=== PATIENT | male | born 1980 | race Caucasian/White ===

== ENCOUNTER 2018-08-01 08:24 | Emergency (ER) | payer MEDICAID, SELFPAY ==
[2018-08-01 08:26] VITALS: BP 133/85; PULSE 89; RESP 16; TEMP 36.7; O2SAT 97; BMI 24.3
--- NOTE | 2018-08-01 08:36 | RAD_ITS ---
STUDY: X-RAY CHEST REASON FOR EXAM: Male, 37 years old. Wheezing and productive cough. TECHNIQUE: PA and lateral views of the chest. COMPARISON: None. FINDINGS: The lungs are clear and expanded. There is no demonstrated pleural abnormality. Normal size heart. Normal mediastinum and nichol. Normal visualized pulmonary arteries. Normal visualized aortic arch and descending thoracic aorta. Normal visualized thoracic spine. Normal visualized ribs, clavicles, and shoulders. There is no demonstrated abnormality of the visualized soft tissue structures of the upper abdomen. RAD/Chest PA and Lateral IMPRESSION: Normal x-ray examination of the chest. Electronically Signed: Nico Hancock, at 9:39 EDT , Service support ,
[2018-08-01] MEDS: predniSONE 20 MG Tablet 60 MG PO (08:41)
--- NOTE | 2018-08-01 08:42 | ED.DCSUM_ITS ---
History of Present Illness Chief Complaint: Cough Detail of Chief Complaint: And wheezing Informant: Patient, Significant Other Onset: Month(s) - Onset February. Context: Gradual Onset Timing: Continuous Quality: Wheezing with expiration Location: respiratory Current Severity: Moderate Maximum Severity: Moderate Worsened by: Possible infection Relieved by: Nothing Associated Symptoms: Runny nose, congestion productive cough with intermittent hemoptysis Narrative: Patient is a 37-year-old male who has history of smoking. He is presently smoking 1.5 to 2 packs/day. He started smoking at the age of 10. He denies fever, chills night sweats. He denies ocular symptoms, visual symptoms, pruritus or drainage. He denies ear pain, decreased hearing. He denies sore throat. He reports shortness of breath with activity, expiratory wheezing and intermittent productive cough. He states at times he notices blood in his sputum. He has no history of PE or DVT. He denies leg pain, swelling discoloration. He denies history of allergic rhinitis. Prior similar symptoms: No Recent Illness/Hospitalization: No - Past Medical History (1) No significant past medical history Status: Acute Past Medical History - Allergies and Home Meds Allergies/Adverse Reactions: Allergies No Known Allergies Allergy (Verified 08/01/18 08:25) Primary Care Physician: Care Physician,No Primary [Primary Care Provider] - Prior records reviewed: Yes Past Medical History: None Surgical History: no surgical history Lives: Spouse/ Significant Other Smoking Status: Current every day smoker Alcohol: Rare Drugs: None Review of Systems General: Denies: Chills, Fever, Malaise, Sweats Eyes: Denies: Visual changes - bilaterally, Blurred Vision - bilaterally ENT: Reports: - - Of nasal congestion. Denies: Bilateral ear pain, Rhinorrhea, Sore throat Cardiovascular: Denies: Chest pain, Palpitations Respiratory: Reports: Dyspnea, Cough, Sputum, Dyspnea on exertion. Denies: Orthopnea, Paroxysmal nocturnal dyspnea Gastrointestinal: Denies: Abdominal pain, Nausea, Vomiting, Diarrhea, Melena, Hematochezia Genitourinary: Denies: Dysuria, Hematuria, Frequency Musculoskeletal: Denies: Myalgias, Arthralgias, Neck pain, Back pain, Swelling, Extremity Pain, -, - Skin: Denies: Rash, Wounds Neurological: Denies: Weakness, Parasthesia, Numbness Hematologic: Denies: Easy bruising, Easy bleeding Allergy: Denies: Uticaria, Swelling of the mouth, Swelling of the tongue Physical Exam Vital Signs/Narrative: Vital Signs Temp Pulse Resp BP Pulse Ox 08/01/18 08:26 98.1 F 89 16 133/85 H 97 Inital Vital Signs reviewed: Yes General: Well nourished, Well developed, No Acute Distress Head: Normocephalic, Atraumatic Eyes: Perrl, EOMI. Negative for: Pale conjunctiva, Scleral icterus, - ENT: Moist mucous membranes, TM's clear, Nasal congestion - Nasal mucosa is ospina and slightly boggy with clear drainage noted.. Negative for: No rhinorrhea Neck: Negative for: Supple, Nontender, No lymphadenopathy, No JVD, - Cardiovascular: Regular rate, Regular rhythm, No murmurs, Normal S1, Normal S2 Respiratory: No distress, Chest nontender, Wheezing, Decreased Air Movement - Increased expiratory phase. Negative for: CTA bilaterally Abdomen: Soft, Nontender, Nondistended, Normal bowel sounds, No masses Rectal: Deferred Back: Nontender, Normal Inspection Extremities: Nontender, No edema, - - There is no asymmetry, swelling, discoloration, leg vein distention, palpable cords or tenderness along the distribution of the deep venous system. Skin: Normal color, No rash, No Trauma. Negative for: Cyanosis, Diaphoresis, Jaundice Neurological: Alert, Oriented x3, Cranial nerves II-XII grossly intact, Normal Strength, Normal Sensation Psychological: Normal affect, Normal Mood Diagnostic/Tx/Re-eval Chest X-Ray - ED: 2 View, Read by ED Physician, Normal, Heart, Lungs, Mediastinum, No Acute Disease, - - On lateral 1 of patient's thoracic vertebrae is slightly compressed. - Medical Decision Making Patient most likely has emphysema/COPD with exacerbation secondary to allergies and or upper respiratory infection. Patient's nasal exam is consistent with allergic rhinitis. Because of the abnormal auditory findings chest x-ray was obtained to evaluate for chronic changes, infiltrate and mass since he is reporting intermittent hemoptysis with history of smoking since age of 10. He received a DuoNeb as well as albuterol. He also was administered 60 mg of prednisone p.o. Chest x-ray reveals no mass. There is no infiltrate. Since patient had a cough for months suspect flare of COPD. Will place on burst of prednisone, doxycyclin e and he has been instructed to use his albuterol inhaler every 2-4 hours while awake for the next 2 to 3 days. He also was informed that it is in his best interest to quit smoking. ED Disposition - Plan for ED Patient: Disposition: Home or Assisted Living Diagnosis: Acute exacerbation of COPD with asthma, Acute exacerbation of chronic bronchitis, Hemoptysis Instructions: ED COPD Flare Prescriptions: Prednisone [Deltasone] 40 mg PO DAILY #10 tab Doxycycline 100 mg PO BID #14 cap Referrals: Care Physician,No Primary [Primary Care Provider] - Mary Kidd [NON-STAFF] - 1 Week if not improving Additional Instructions: It is in your best interest to quit smoking.
[2018-08-01] MEDS: Ipratropium/Albuterol Sulfate 3 ML AMPUL.NEB INHALATION (08:48)
[2018-08-01] MEDS: Albuterol 2.5 MG/3 ML VIAL.NEB. INHALATION (08:48)
[2018-08-01 08:49] VITALS: PULSE 79; RESP 20
[2018-08-01] MEDS: Doxycycline 100 MG CAPSULE PO (09:38)
--- NOTE | 2018-08-01 09:45 | ED.VISSUMM ---
- ER Visit Summary Date of Service: 08/01/18 Chief Complaint: [] History of Present Illness: The patient is a 37 M [] Physical Examination: [] Test Results: [] Emergency Department Course and Treatment: [] Treatment Plan: [] Disposition: [] Impression: [] This note was generated with [employer]ete dictation software. It may contain incorrect words, spelling, and punctuation that were not noted in review of the chart prior to signing ED Disposition - Plan for ED Patient: Disposition: Home or Assisted Living Diagnosis: Acute exacerbation of COPD with asthma, Acute exacerbation of chronic bronchitis, Hemoptysis Instructions: ED COPD Flare Prescriptions: Albuterol Inhaler [Ventolin Hfa] 2 puff INHALATION Q4H PRN PRN #1 inhaler PRN Reason: Wheezing Prednisone [Deltasone] 40 mg PO DAILY #10 tab Doxycycline 100 mg PO BID #14 cap Referrals: Mary Kidd [NON-STAFF] - 1 Week if not improving Care Physician,No Primary [Primary Care Provider] - Additional Instructions: It is in your best interest to quit smoking.
[2018-08-01 09:50] VITALS: BP 128/77; PULSE 77; RESP 16; O2SAT 100
== END 2018-08-01 09:51 | disposition home or self-care (01) ==
PROVIDERS: Emergency Provider Emergency Medicine
DX: J44.1 Chronic obstructive pulmonary disease with (acute) exacerbation (principal); J20.9 Acute bronchitis, unspecified; J44.0 Chronic obstructive pulmonary disease with (acute) lower respiratory infection; J45.901 Unspecified asthma with (acute) exacerbation; R04.2 Hemoptysis; F17.210 Nicotine dependence, cigarettes, uncomplicated
CPT/HCPCS: 71046; 94640; 99283; J7030; A4216

== ENCOUNTER 2018-08-14 12:52 | Emergency (ER) | payer MEDICAID, SELFPAY ==
[2018-08-14 12:53] VITALS: BP 148/99; PULSE 73; PULSE 77; RESP 16; RESP 18; TEMP 37.2; O2SAT 98; BMI 23.5
[2018-08-14 14:02] LABS: Absolute Lymphocyte Count 2.14 X10^3/ul (0.83-4.51); Absolute Neutrophil Count 5.2 X10^3/uL (2.0-7.7); Basophil# 0.03 X10^3/uL; Basophil% 0.4 % (0-1); Eosinophil# 0.24 X10^3/uL; Eosinophils% 2.9 % (0-5); Hematocrit 47.2 % (40-54); Hemoglobin 16.3 g/dl (13.0-16.5); Lymphocyte # 2.14 X10^3/ul (4.0); Lymphocyte % 25.9 % (19-41); Mean Corp Hgb Conc 34.5 g/gl (32-36); Mean Corpuscular Volume 89.7 fL (80-94); Mean Platelet Vol. 9.2 fl (6.2-12.0); Monocyte# 0.67 X10^3/uL; Monocyte% 8.1 % (0-10); Neutrophil # 5.17 X10^3/uL (2.7-7.7); Neutrophil % 62.5 % (47-70); Platelet Count 254 K/mm3 (150-450); RBC Distribution Width CV 14.1 % (11.6-14.6); Red Blood Count 5.26 M/mm3 (4.6-6.2); White Blood Count 8.3 K/mm3 (4.4-11.0)
[2018-08-14 14:03] LABS: POSITIVE COUNT NO; POSITIVE DIFFERENTIAL NO; POSITIVE MORPHOLOGY NO
--- NOTE | 2018-08-14 14:04 | ED.RN ---
TIFFANIE WITH CRISIS AWARE THAT PT NEEDS TO BE SEEN; SHE WILL CALL WHEN SOMEONE IS HEADED OVER
[2018-08-14 14:08] VITALS: RESP 16
[2018-08-14 14:09] LABS: Alcohol, Blood (Medical)-Serum < 3.0 mg/dL; Anion Gap 5 (5-15); BUN 15 mg/dL (7-18); BUN/Creat Ratio 12.7 RATIO (10-20); Calcium,Total 9.3 mg/dL (8.5-10.1); Chloride 105 mmol/L (98-107); Creatinine, Serum 1.18 mg/dL (0.70-1.30); EST Glomerular Filtration Rate 74 mL/min (>60); Est Glom Filt Rate - Afr Amer 90 mL/min (>60); Estimated Creatinine Clearance 80.91 ml/min; Glucose 103 mg/dL (74-106); Potassium 4.1 mmol/L (3.5-5.1); Sodium Level 138 mmol/L (136-145)
[2018-08-14 14:15] LABS: Amphetamine Urine VISTA NEGATIVE (<1000 ng/mL); Barbiturate Urine VISTA NEGATIVE (< 200 ng/mL); Benzodiazepine Urine VISTA NEGATIVE (< 200 ng/mL); Cocaine Urine VISTA NEGATIVE (< 300 ng/mL); Ecstacy Urine VISTA NEGATIVE (< 500 ng/mL); Methadone Urine VISTA NEGATIVE (< 300 ng/mL); PCP Urine VISTA NEGATIVE (< 25 ng/mL); THC Urine VISTA POSITIVE (< 50 ng/mL); Vista UDS pH Range 6
--- NOTE | 2018-08-14 14:54 | ED.DCSUM_ITS ---
- ER Visit Summary Date of Service: 08/14/18 Chief Complaint: Depression and suicidal History of Present Illness: The patient is a 37 M with depression and prior psychiatric illness. States that the protective services are tried to take his stepson out of her home. Patient states he has made him more more depressed. To the point today that he thinks to try to break up his family he is feeling very stressed out and is having suicidal thoughts. He has tried to commit suicide the past by cutting his forearms. He denies any attempt at this time. No overdose. He does not have a specific plan. Physical Examination: Male no acute distress vital signs are stable afebrile. At times is tearful. But he is awake and alert. No smell of alcohol. No signs of toxidrome. H EENT exam unremarkable. Neck nontender. Lungs clear to auscultation bilaterally. Heart regular rhythm no murmur. Abdomen soft nontender. Extremities moves all 4. Neurovascular intact. No acute wounds. Back nontender. Neurologically he is awake alert with no focal motor deficits. Test Results: CBC normal white count 8. Chemistries normal. Normal creatinine and gap. Tox screen negative except for positive for cannabis. Alcohol negative. Emergency Department Course and Treatment: Due to the patient's history of suicide attempt and depression and what he and I discussed I will have him evaluated by crisis for possible psychiatric admission. Treatment Plan: I did evaluate the patient spoke with me around 1550 p.m. They are comfortable as is the patient that they can safety plan with him and follow-up with him tomorrow. Disposition: Discharge to home after discussion with crisis personnel Impression: Acute on chronic depression Suicidal ideation This note was generated with [employer] dictation software. It may contain incorrect words, spelling, and punctuation that were not noted in review of the chart prior to signing ED Disposition - Plan for ED Patient: Referrals: Care Physician,No Primary [Primary Care Provider] -
--- NOTE | 2018-08-14 15:06 | CM.ED ---
Social Work Crisis to assess patient for placement, per Dr. Chery recommendation. Jose R Harman SERGING MACHINE OPERATOR, METAL FABRICATOR APPRENTICE
[2018-08-14 15:43] VITALS: BP 135/65; PULSE 67; RESP 18; O2SAT 100
--- NOTE | 2018-08-14 15:55 | ED.DEP ---
ED Disposition - Plan for ED Patient: Disposition: Home or Assisted Living Instructions: Depression Referrals: Counseling,Center [GROUP OF PHYSICIANS] - 1 Day Additional Instructions: Return for feeling worse. If you are becoming more depressed or feel like you would hurt yourself or someone else. Return to the ER. Follow-up with the counseling center tomorrow as scheduled.
[2018-08-14] MEDS: Acetaminophen 500 MG Tablet 1000 MG PO (16:06)
[2018-08-14 16:10] VITALS: RESP 16
== END 2018-08-14 16:16 | disposition home or self-care (01) ==
PROVIDERS: Emergency Provider Emergency Medicine
DX: R45.851 Suicidal ideations (principal); F32.9 Major depressive disorder, single episode, unspecified; J45.909 Unspecified asthma, uncomplicated; Z72.0 Tobacco use; Z79.51 Long term (current) use of inhaled steroids
CPT/HCPCS: 36415; 80048; 80307; 80320; 85025; 99285; G0480

== ENCOUNTER 2018-09-29 16:06 | Emergency (ER) | payer MEDICAID, SELFPAY ==
[2018-09-29 16:08] VITALS: BP 135/92; PULSE 113; RESP 15; TEMP 36.6; O2SAT 98; BMI 27.3
--- NOTE | 2018-09-29 16:50 | CM.ED ---
Social Work Consult: Mental Health, self-harming behavior (cutting). Informant: Dr. Saunders Chief Complaint: Patient stating to have gotten in an argument with patient girlfriend today and to have gotten upset to the point where patient took an utility knife and cut forearm. Patient stating to have not wanted to hurt anyone else and the cutting helps patient to let out the emotions. Living Situation: Lives with significant other. Support/Resources: Identifies mom and significant other's mother as main support. Employment: Patient stating to have recently lost job. Mental Health Treatment/History: Patient stating to have a history of suicidal thoughts and to have had a safety plan to home in July 2018 and to have had a crisis follow up appointment but was unable to go to appointment due to crisis being busy that day. Patient stating to be interested in having counseling as a follow up. Patient open to this social work case manager setting up patient with crisis follow up appointment for Monday. Substance Abuse Hx: Patient reporting to utilize Meth and THC to manage anger, mental health. Assessment: Met with patient in room. Patient agreeable to meeting with this social work case manager. Patient stating to have been in a fight with girlfriend for the past three days and that today patient just snapped. Patient stating I could not take it anymore. Patient stating I did not want to hurt anyone and needed to let the emotions outs and that is why patient cut self. Patient denies any suicidal thoughts or plans on this day or within the past month. Patient stating that things were going well. Patient becoming tearful stating I love her. Patient states to care for girlfriend and to want things to work out. As mentioned above patient is agreeable to having crisis follow up for Monday. Patient stating to now be feeling better. Collaborating with Dr. Saunders, recommending safety plan to home. Interventions: Social Work assessment Crisis follow up scheduled for Monday at 10:00am with Mattie at [facility]. Patient provided with appointment reminder. PLAN: Discharge to home with girlfriend and crisis follow-up. Patient girlfriend later came to ED and patient and patient girlfriend were working through disagreement. Patient also provided with crisis hotline number if needed. Jose R BASSETT, TENA
--- NOTE | 2018-09-29 16:50 | ED.VISSUMM ---
- ER Visit Summary Date of Service: 09/29/18 Chief Complaint: Agitation History of Present Illness: The patient is a 37 M who presents with agitation that began today. Patient states he was upset with his girlfriend. Patient states they got into an argument and he took a razor knife and cut his left forearm. Patient states he cuts himself to relieve stress. Patient denies any suicidal ideations. Patient denies any paresthesias or weakness. Patient does not see a counselor or psychiatrist. Patient admits to methamphetamine and marijuana use. Physical Examination: Vital signs are stable. Patient is afebrile. Patient is in no acute distress. Skin is warm and dry. There is a 6 cm full-thickness linear laceration on the volar aspect of the left forearm. There are no foreign bodies noted. There is no active bleeding noted. There are no tendon lacerations. There are no muscle lacerations. Strength is 5/5 in flexion and extension of the left wrist and hand. Sensation was intact to light touch in all digits. Capillary refill is less than 2 seconds in all digits. Radial pulses are equal bilaterally. Heart was regular rate and rhythm. Lungs are clear and equal bilaterally. Patient has an irritable affect. Patient denies any suicidal or homicidal thoughts. Test Results: CBC, basic metabolic profile, and serum alcohol level were obtained and were normal. Urine tox screen was ordered. Emergency Department Course and Treatment: The left forearm laceration was cleaned and anesthetized 1% plain lidocaine locally. The wound was irrigated with copious amounts of normal saline. The wound was closed with 7 afia. Patient tolerated the procedure well. Bacitracin dressing was applied. Social work was then to evaluate the patient and will arrange for outpatient follow-up with crisis. Patient understood and was agreeable with the plan. All questions were answered. Disposition: Discharge home Impression: Agitation This note was generated with [employer] dictation software. It may contain incorrect words, spelling, and punctuation that were not noted in review of the chart prior to signing ED Disposition - Plan for ED Patient: Disposition: Home or Assisted Living Diagnosis: Agitation Instructions: Stress Relief: Activities, Stress Relief: Changing Your Response, LACERATION, Extrem (Suture, Staple or Tape) Referrals: Care Physician,No Primary [Primary Care Provider] - Additional Instructions: Follow-up with the crisis center on Monday.
[2018-09-29 17:15] LABS: Absolute Lymphocyte Count 1.33 X10^3/uL (0.83-4.51); Absolute Neutrophil Count 7.9 X10^3/uL (2.0-7.7); Basophil# 0.03 X10^3/uL; Basophil% 0.3 % (0-1); Eosinophil# 0.13 X10^3/uL; Eosinophils% 1.3 % (0-5); Hematocrit 46.6 % (40-54); Hemoglobin 16.1 g/dL (13.0-16.5); Lymphocyte # 1.33 X10^3/ul (4.0); Lymphocyte % 13.1 % (19-41); Mean Corp Hgb Conc 34.5 g/dL (32-36); Mean Corpuscular Hgb 31.1 pg (27.0-32.0); Mean Corpuscular Volume 90.1 fL (80-94); Monocyte# 0.76 X10^3/uL; Monocyte% 7.5 % (0-10); NRBC Flagged by Analyzer 0 % (0-5); Neutrophil # 7.87 X10^3/uL (2.7-7.7); Neutrophil % 77.5 % (47-70); Platelet Count 267 K/mm3 (150-450); RBC Distribution Width CV 12.6 % (11.6-14.6); Red Blood Count 5.17 M/mm3 (4.6-6.2); White Blood Count 10.2 K/mm3 (4.4-11.0)
--- NOTE | 2018-09-29 17:30 | ED.RN ---
PATIENT WAS EVALUATED BY DR. PASCUAL AND CASSIDY LINARES, BOTH AGREE THAT HE DOES NOT NEED A 1:1 SITTER.
[2018-09-29] MEDS: Diphth,Pertuss(Acell),Tet Vac 0.5 ML Vial IM (17:32)
[2018-09-29] MEDS: BACITRACIN 15 GM Tube 1 APPLIC TOPICAL (17:33)
[2018-09-29 17:41] LABS: Anion Gap 6 (5-15); BUN 24 mg/dL (7-18); Calcium,Total 9.1 mg/dL (8.5-10.1); Chloride 108 mmol/L (98-107); Creatinine, Serum 1.33 mg/dL (0.70-1.30); EST Glomerular Filtration Rate 64 mL/min (>60); Est Glom Filt Rate - Afr Amer 78 mL/min (>60); Estimated Creatinine Clearance 71.79 ml/min; Glucose 122 mg/dL (74-106); Potassium 3.6 mmol/L (3.5-5.1); Sodium Level 137 mmol/L (136-145)
[2018-09-29 18:54] LABS: Amphetamine Urine VISTA POSITIVE (<1000 ng/mL); Barbiturate Urine VISTA NEGATIVE (< 200 ng/mL); Benzodiazepine Urine VISTA NEGATIVE (< 200 ng/mL); Cocaine Urine VISTA NEGATIVE (< 300 ng/mL); Ecstacy Urine VISTA POSITIVE (< 500 ng/mL); Methadone Urine VISTA NEGATIVE (< 300 ng/mL); PCP Urine VISTA NEGATIVE (< 25 ng/mL); THC Urine VISTA POSITIVE (< 50 ng/mL); Vista UDS pH Range 5
[2018-09-29 19:23] VITALS: BP 143/87; PULSE 99; RESP 18; O2SAT 97
== END 2018-09-29 19:26 | disposition home or self-care (01) ==
PROVIDERS: Emergency Provider Emergency Medicine
DX: S51.812A Laceration without foreign body of left forearm, initial encounter (principal); R45.1 Restlessness and agitation; X78.8XXA Intentional self-harm by other sharp object, initial encounter; Y93.9 Activity, unspecified; Y92.9 Unspecified place or not applicable; J44.9 Chronic obstructive pulmonary disease, unspecified; F12.90 Cannabis use, unspecified, uncomplicated; F15.90 Other stimulant use, unspecified, uncomplicated; F17.200 Nicotine dependence, unspecified, uncomplicated
CPT/HCPCS: 12002; 80048; 80307; 80320; 85025; 90471; 90715; 99285; G0480

== ENCOUNTER 2018-10-27 03:51 | Emergency (ER) | payer MEDICAID, SELFPAY ==
[2018-10-27 03:53] VITALS: PULSE 131; RESP 24; TEMP 36.7; O2SAT 96; BMI 26.7
[2018-10-27] MEDS: Succinylcholine Chloride 200 MG/10 ML Vial 100 MG IV (03:58)
[2018-10-27] MEDS: Etomidate 20 MG/10 ML Vial IV (03:58)
--- NOTE | 2018-10-27 04:07 | ED.DCSUM_ITS ---
History of Present Illness Chief Complaint: Suicidal Narrative: Patient is a 37-year-old male who presents after hanging. He was found hanging from his porch by a para cord. He was cut down by a bystander. EMS reports that he fell roughly 10 feet and may have landed on a small stump. He has been combative and agitated throughout their entire course. He was not responding to any commands. However he did appear to be moving all 4 extremities. Further history unable to be obtained. Past Medical History - Allergies and Home Meds Allergies/Adverse Reactions: Allergies No Known Allergies Allergy (Verified 10/27/18 04:15) Primary Care Physician: Care Physician,No Primary [Primary Care Provider] - Past Medical History: - - Unable to obtain Surgical History: no surgical history Smoking Status: Current every day smoker Review of Systems ROS: Unable to Obtain Physical Exam Vital Signs/Narrative: Vital Signs Temp Pulse Resp Pulse Ox 10/27/18 03:53 98.0 F 131 H 24 H 96 Inital Vital Signs reviewed: Yes General: Acute Distress Head: - - Patient has blood coming from his mouth ENT: - - Ligature sibley across the neck Cardiovascular: - - Heart regular tachycardia no murmur Respiratory: - - Equal breath sounds no rales or wheezing Abdomen: Soft, Nondistended Back: - - No obvious signs of trauma such as lacerations puncture wounds no step-off along the spine Extremities: - - Moving all 4 extremities no obvious bony deformities noted Skin: - - Diaphoretic, hot to the touch Neurological: - - Patient agitated with no usable speech, GCS [id number] = 11 Diagnostic/Tx/Re-eval - Medical Decision Making After the patient was intubated I immediately called for trauma transfer. I spoke to Dr. Alexis at [facility] who accepted patient for transfer and would defer CT imaging until he arrives at that facility. I will obtain portable chest and pelvis prior to transfer. Patient also discussed with the emergency physician and patient will be seen as a trauma team at [facility]. ED Disposition - Plan for ED Patient: Disposition: [facility] Diagnosis: Hanging Referrals: Care Physician,No Primary [Primary Care Provider] -
[2018-10-27] MEDS: Propofol 10MG/Ml 1,000 MG/100 ML Bottle 7.4 MG CONT INF (04:10)
--- NOTE | 2018-10-27 04:11 | ED.RN ---
GWENDOLYN MAINTAINED ON BILAT EXTREMITIES--PT WAS RESTLESS.DIPIVAN STARTED AT15 MCG OR 7.1 CC/HR.
--- NOTE | 2018-10-27 04:15 | RAD_ITS ---
STUDY: X-RAY - PELVIS REASON FOR EXAM: Male, 37 years old. Status post suicide attempt TECHNIQUE: One view of the pelvis was obtained. COMPARISON: None. FINDINGS: There is a non-specific bowel gas pattern. Normal visualized soft tissue structures. Bladder catheter is in place. Normal bilateral iliac wings, sacroiliac joints and visualized sacrum. Normal visualized bilateral superior and inferior pubic rami. Normal pubic symphysis. Normal ischial tuberosities. Normal visualized right femoral head. Normal right acetabulum. Normal right hip joint. Normal visualized left femoral head. Normal left acetabulum. Normal left hip joint. RAD/Pelvis 1 or 2 Views IMPRESSION: Normal x-ray examination of the pelvis. Electronically Signed: Chay Robb MD at 4:40 EDT Tel , Service support ,
--- NOTE | 2018-10-27 04:17 | RAD_ITS ---
STUDY: X-RAY CHEST REASON FOR EXAM: Male, 37 years old. Status post suicide attempt TECHNIQUE: Single AP portable view of the chest. COMPARISON: 08/01/2017 FINDINGS: Endotracheal tube tip projecting 6 cm above the opal. Nasogastric tube tip extends to the antrum of the stomach. No confluent airspace infiltrate. There is no demonstrated pleural abnormality. Normal size heart. Normal mediastinum and nichol. Normal visualized pulmonary arteries. Normal visualized aortic arch and descending thoracic aorta. Normal visualized thoracic spine. Normal visualized ribs, clavicles, and shoulders. There is no demonstrated abnormality of the visualized soft tissue structures of the upper abdomen. RAD/Chest 1 View (Portable) IMPRESSION: 1. Appropriate positioning of supportive tubing. 2. No evidence of acute cardiopulmonary disease Electronically Signed: Chay Robb MD at 4:39 EDT Tel , Service support ,
[2018-10-27 04:20] VITALS: PULSE 117; RESP 33; O2SAT 99
--- NOTE | 2018-10-27 04:26 | ED.RN ---
PT NOTED TO HAVE ROPE BARAHONA AROUND NECK.
--- NOTE | 2018-10-27 04:26 | ED.RN ---
0415 DIPRIVAN INCREASED TO 20MCG/ OR 9.8CCHR.
[2018-10-27 04:29] LABS: Absolute Lymphocyte Count 9.52 X10^3/uL (0.83-4.51); Absolute Neutrophil Count 7.5 X10^3/uL (2.0-7.7); Basophil% 0.5 % (0-1); Eosinophil# 0.42 X10^3/uL; Eosinophils% 2.1 % (0-5); Hematocrit 48.2 % (40-54); Hemoglobin 15.4 g/dL (13.0-16.5); Lymphocyte # 9.52 X10^3/ul (4.0); Lymphocyte % 48.7 % (19-41); Mean Corpuscular Hgb 30.5 pg (27.0-32.0); Mean Corpuscular Volume 95.4 fL (80-94); Mean Platelet Vol. 9.2 fl (6.2-12.0); Monocyte% 7.2 % (0-10); NRBC Flagged by Analyzer 0 % (0-5); Neutrophil # 7.46 X10^3/uL (2.7-7.7); Neutrophil % 38.2 % (47-70); POSITIVE DIFFERENTIAL YES; POSITIVE MORPHOLOGY YES; Platelet Count 328 K/mm3 (150-450); RBC Distribution Width CV 12.8 % (11.6-14.6); RBC Distribution Width SD 45.1 fl (35.1-43.9); Red Blood Count 5.05 M/mm3 (4.6-6.2); White Blood Count 19.6 K/mm3 (4.4-11.0)
--- NOTE | 2018-10-27 04:29 | NURSING ---
PT KICKING AT THE BED,DIPRIVAN INCREASED TO 30MCG/KG OR 14.8CC/HR.
[2018-10-27 04:30] VITALS: BP 182/75; PULSE 132; RESP 18; O2SAT 98
[2018-10-27] MEDS: Midazolam 5 MG/ML Syringe 4 MG IV (04:36)
--- NOTE | 2018-10-27 04:39 | ED.RN ---
PHONE REPORT GIVEN TO JEANNETTE SHIRLEY AT THIS TIME
[2018-10-27 04:46] LABS: International Normalized Ratio 1.1
[2018-10-27 04:47] LABS: Albumin, Serum 4.4 g/dL (3.2-5.0); BUN 20 mg/dL (7-18); Creatinine, Serum 1.81 mg/dL (0.70-1.30); EST Glomerular Filtration Rate 45 mL/min (>60); Est Glom Filt Rate - Afr Amer 55 mL/min (>60); Estimated Creatinine Clearance 56.42 ml/min; Glucose 155 mg/dL (74-106)
[2018-10-27 04:48] LABS: AST(SGOT) 39 U/L (15-37); Alanine Aminotransfer ALT/SGPT 48 U/L (16-61); Alcohol, Blood (Medical)-Serum < 3.0 mg/dL; Alkaline Phosphatase 93 U/L (45-117); Anion Gap 28 (5-15); Calcium,Total 9.9 mg/dL (8.5-10.1); Chloride 110 mmol/L (98-107); Differential Indicated SCAN CRITERIA MET; Globulin 4.6 g/dL (2.2-4.2); Potassium 5.3 mmol/L (3.5-5.1); Sodium Level 148 mmol/L (136-145)
[2018-10-27 04:51] VITALS: BP 182/75; PULSE 124; RESP 20; TEMP 37.2; O2SAT 99
[2018-10-27 05:00] VITALS: BP 132/75; PULSE 127; RESP 20; O2SAT 98
[2018-10-27 05:01] LABS: Amphetamine Urine VISTA POSITIVE (<1000 ng/mL); Barbiturate Urine VISTA NEGATIVE (< 200 ng/mL); Benzodiazepine Urine VISTA NEGATIVE (< 200 ng/mL); Cocaine Urine VISTA NEGATIVE (< 300 ng/mL); Ecstacy Urine VISTA NEGATIVE (< 500 ng/mL); Methadone Urine VISTA NEGATIVE (< 300 ng/mL); PCP Urine VISTA NEGATIVE (< 25 ng/mL); THC Urine VISTA NEGATIVE (< 50 ng/mL); Vista UDS pH Range 5
[2018-10-27 05:02] LABS: Reactive Lymphocyte 2+
--- NOTE | 2018-10-27 05:17 | ED.RN ---
6525 JAYNE DID TALK TO PT'A GIRLFRIEND AND SHE DID COME TO THE BEDSIDE AND SEEN PT.
--- NOTE | 2018-10-27 05:35 | ED.RN ---
0420 ABDOMEN SOFT WITH BOWEL SOUND X 4 QUADS.
== END 2018-10-27 05:12 | disposition short-term general hospital (02) ==
LOC: ED 04:27
PROVIDERS: Emergency Provider Emergency Medicine
DX: T71.162A Asphyxiation due to hanging, intentional self-harm, initial encounter (principal); F17.200 Nicotine dependence, unspecified, uncomplicated
CPT/HCPCS: 31500; 51702; 71045; 72170; 80053; 80307; 80320; 85025; 85610; 94002; 96365; 96366; 96375; 99251; 99285; J7030; A4216; G0463; G0480; J0330

== ENCOUNTER 2019-01-01 08:23 | Emergency (ER) | payer MEDICAID, SELFPAY ==
[2019-01-01 08:26] VITALS: BP 113/83; PULSE 82; RESP 17; TEMP 36.9; O2SAT 99; BMI 28.2
--- NOTE | 2019-01-01 08:28 | CT_ITS ---
STUDY: CT ABDOMEN AND PELVIS WITH CONTRAST REASON FOR EXAM: Male, 38 years old. One-week history of groin pain. Right inguinal hernia. RADIATION DOSAGE (If Supplied By Facility): CTDIvol = ( 10.46 ) mGy, DLP = ( 776.7 ) mGycm TECHNIQUE: Transaxial images were obtained from the dome of the diaphragm to the symphysis pubis without oral contrast. IV/Oral Isovue 300 100 was administered. Sagittal and coronal images were reconstructed. Individualized dose optimization techniques were used for this CT. COMPARISON: None. FINDINGS: Minimal degree of increased markings at the lung bases suggestive of bibasilar atelectasis. The visualized portions of the heart are within normal limits. Normal liver. Normal gallbladder and extrahepatic biliary system. Normal spleen. Normal pancreas. Normal bilateral adrenal glands. Normal right kidney. There is a 1.8 cm x 2.6 cm cyst in the mid inferior aspect of the left kidney. Normal visualized stomach. Normal small intestine. Normal colon. The appendix is visualized and appears normal. Normal abdominal aorta. Normal inferior vena cava. Normal retroperitoneum. Normal urinary bladder. In the right groin, there are multiple lymph nodes seen. The largest measures 3.4 cm x 2.7 cm. Inflammatory changes are seen in the surrounding subcutaneous fat. Small benign-appearing lymph nodes are also seen in the left groin. There is no evidence of hernia. There is a small umbilical hernia containing fat. Normal osseous structures. CT/Abdomen/Pelvis WITH Contrast IMPRESSION: Right inguinal adenopathy as described. The largest measures 3.4 cm x 2.7 cm. Inflammatory changes are seen in the surrounding subcutaneous fat. Electronically Signed: Nico Hancock, at 10:49 EST , Service support ,
--- NOTE | 2019-01-01 08:37 | ED.VISSUMM ---
- ER Visit Summary Date of Service: 01/01/19 Chief Complaint: Abdominal pain History of Present Illness: The patient is a 38 M with abdominal pain. Symptoms started gradually over the past 5 days. The pain is in his right inguinal region and does not radiate. He never had this before. Nothing seemed to provoke it or make it worse. Nothing seems to make it better. No associated symptoms. No pertinent surgical history. Physical Examination: Patient has fullness and tenderness to his right inguinal region. No discrete mass was palpated. Overlying skin appears normal. The remainder of his exam is unremarkable. Test Results: Labs, urine, CT pending. Emergency Department Course and Treatment: Patient was made NPO. Will check labs, urine, CT imaging. He was treated with fluids, Zofran, morphine while awaiting results. White count is 12. Glucose 111 and BUN 20. Urinalysis unremarkable. CT showed right inguinal adenopathy. No evidence of hernia. I am not sure what is causing his adenopathy. He will need further evaluation. I believe this can be done as an outpatient. There is no indication for hospitalization or further emergency testing. He will be treated empirically with Augmentin. Follow-up with primary care. Treatment Plan: As above Disposition: As above Impression: 1. Right inguinal adenopathy This note was generated with [employer] dictation software. It may contain incorrect words, spelling, and punctuation that were not noted in review of the chart prior to signing ED Disposition - Plan for ED Patient: Referrals: Care Physician,No Primary [Primary Care Provider] -
[2019-01-01] MEDS: Morphine 4 MG/ML Syringe IV (08:40)
[2019-01-01] MEDS: 0.9% Normal Saline 1,000 ML 1000 ML IV (08:40)
[2019-01-01] MEDS: Ondansetron 4 MG/2 ML Vial IV (08:41)
[2019-01-01 08:49] LABS: Absolute Lymphocyte Count 1.86 X10^3/uL (0.83-4.51); Absolute Neutrophil Count 8.7 X10^3/uL (2.0-7.7); Basophil# 0.05 X10^3/uL; Basophil% 0.4 % (0-1); Eosinophil# 0.28 X10^3/uL; Eosinophils% 2.3 % (0-5); Hematocrit 43.1 % (40-54); Hemoglobin 14.7 g/dL (13.0-16.5); Lymphocyte # 1.86 X10^3/ul (4.0); Lymphocyte % 15.6 % (19-41); Mean Corp Hgb Conc 34.1 g/dL (32-36); Mean Corpuscular Hgb 30.5 pg (27.0-32.0); Mean Corpuscular Volume 89.4 fL (80-94); Mean Platelet Vol. 8.9 fl (6.2-12.0); Monocyte# 1.03 X10^3/uL; Monocyte% 8.6 % (0-10); NRBC Flagged by Analyzer 0 % (0-5); Neutrophil # 8.66 X10^3/uL (2.7-7.7); Neutrophil % 72.4 % (47-70); Platelet Count 255 K/mm3 (150-450); RBC Distribution Width CV 12.9 % (11.6-14.6); RBC Distribution Width SD 42.4 fl (35.1-43.9); Red Blood Count 4.82 M/mm3 (4.6-6.2)
[2019-01-01 08:58] LABS: Prothrombin Time (Protime)PT. 13.1 SECONDS (11.7-14.9)
[2019-01-01 09:00] LABS: Partial Thromboplast Time 30.7 Seconds (24.1-36.2)
[2019-01-01 09:01] LABS: Anion Gap 9 (5-15); BUN 20 mg/dL (7-18); BUN/Creat Ratio 16.4 RATIO (10-20); Calcium,Total 8.9 mg/dL (8.5-10.1); Chloride 104 mmol/L (98-107); Creatinine, Serum 1.22 mg/dL (0.70-1.30); EST Glomerular Filtration Rate 71 mL/min (>60); Est Glom Filt Rate - Afr Amer 86 mL/min (>60); Estimated Creatinine Clearance 77.51 ml/min; Glucose 111 mg/dL (74-106); Potassium 4.1 mmol/L (3.5-5.1); Sodium Level 138 mmol/L (136-145)
[2019-01-01 09:53] LABS: Mucous, Urine 0 SEEN /hpf (<or=2+); Red Blood Cells-Urine 0 SEEN /hpf (0-5); Squamous Epithelial Cells - UA 0 SEEN /hpf (0-5)
[2019-01-01 09:55] LABS: Color, Urine Yellow (Yellow); Glucose, Dipstick Normal (Normal); Ketone-Dipstick Negative (Negative); Leukocyte Esterase-Dipstick Negative /ul (Negative); Nitrite-Dipstick Negative (Negative); Occult Blood-Urine Negative /ul (Negative); Protein-Dipstick Negative (Negative); Specific Gravity, Urine 1.015 (1.002-1.030); Urine Bilirubin Dipstick Negative (Negative); Urine Clarity Clear (Clear); Urine Urobilinogen Normal (Normal); Urine pH 6.5 (5.0 - 8.0)
[2019-01-01 10:05] LABS: Bacteria RARE /hpf (None Seen); White Blood Cells 0-5 SEEN /hpf (0-5)
--- NOTE | 2019-01-01 11:20 | ED.DEP ---
ED Disposition - Plan for ED Patient: Instructions: When Your Child Has Swollen Lymph Nodes Prescriptions: Amox/Clavulanate Tablet [Augmentin Tablet] 875 mg PO Q12H #20 tab Prescription Printed Referrals: Mary Kidd [NON-STAFF] -
[2019-01-01 11:29] VITALS: BP 138/88; PULSE 71; RESP 15; O2SAT 96
== END 2019-01-01 11:31 | disposition home or self-care (01) ==
LOC: ED 09:17
PROVIDERS: Emergency Provider Emergency Medicine
DX: R59.0 Localized enlarged lymph nodes (principal); J44.9 Chronic obstructive pulmonary disease, unspecified; Z72.0 Tobacco use; Z79.51 Long term (current) use of inhaled steroids
CPT/HCPCS: 74177; 80048; 81001; 85025; 85610; 85730; 96361; 96374; 96375; 99285; J7030; Q9967; A4216; J2405